=== PATIENT | male | born 1995 | race Caucasian/White ===

== ENCOUNTER 2021-02-12 14:31 | Emergency (ER) | payer SELFPAY ==
[2021-02-12 14:32] VITALS: RESP 18; TEMP 36.8; O2SAT 99; BMI 29.2
--- NOTE | 2021-02-12 14:48 | ECG_ITS ---
APPROVED REPORT Exam: Resting ECG HR:92 bpm ECG Measurements Heart Rate 92 AXES TN 144 P 72 QRSd 78 QRS 95 QT 326 T 56 QTc 403 Conclusion Normal sinus rhythm Rightward axis Borderline ECG Electronically signed by : Bill Lindsay MD 02/14/2021 11:39:39
--- NOTE | 2021-02-12 14:49 | HMH.EDGENADL ---
ED Disposition Clinical Impression: Pharyngitis Qualifiers: Pharyngitis/tonsillitis etiology: unspecified etiology Qualified Code(s): J02.9 - Acute pharyngitis, unspecified Disposition: Home, Self-Care Condition on Discharge: Good Additional Instructions: Cizr-ixh-[id number] medications as needed for aches and pains. PCP follow-up in 2 to 3 days. Referrals: Provider,Referral, MD [Primary Care Provider] - 3 days Time of Disposition: 16:28 - Critical Care Critical Care Time: No Attestation: On , the high probability of a clinically significant, sudden or life threatening deterioration of the following system(s) required my full and direct attention, intervention and personal management. The time I documented below is in addition to time spent performing reported procedures but includes the following listed in this critical care notation. Medical Decision Making - Medical Records Medical records reviewed: Yes: I reviewed the patient's medical records. - Bacilio Inquiry Pt receiving controlled substance: No Vital Signs: 02/12/21 14:32 Temperature 98.3 F Temperature Source Oral Respiratory Rate 18 02 Sat by Pulse Oximetry 99 Oxygen Delivery Method Room Air - Lab Data Lab results reviewed: Yes: I reviewed the patient's lab results. Lab Results 02/12/21 15:45: Group A Strep Rapid Negative Orders (Tests/Meds): ORDERS Category Date Time Status Strep Screen Confirmation Stat Micro 02/12/21 15:45 Received - ECG Data Tracing #1 I reviewed this ECG and interpreted as documented below: 92 bpm, normal sinus rhythm, no ST elevation or depression, normal intervals, no ectopy. ECG initial impression date: 02/12/21 ECG initial impression time: 14:48 Medical Decision Narrative: 25yo M initially long as shortness of breath and therefore chest x-ray in EKG were obtained. The studies are unremarkable. Upon evaluating the patient, actual complaint is left-sided otalgia and sore throat. Physical exam is remarkable only for mild exudate. Strep swab is obtained given history of fever. Strep swab is negative. Discussed likely viral etiology. Continue fkek-dhf-rmrxxey medication as needed for aches and pains. General Adult HPI - General Chief complaint: Shortness of Breath/Dyspnea Stated complaint: throat swollen Time Seen by Provider: 02/12/21 14:49 Mode of Arrival: Ambulatory Limitations: No Limitations Description of Symptoms (Recalled from ER Triage Doc. by RN): pt reports getting 2nd moderna shot on 02/06, has had a sore throat since. states progressively worsening with swelling, last night states it feels like my throat is closing & i am short of breath - History of Present Illness HPI narrative: 25yo M presents to the emergency department with left-sided sore throat. Reports symptoms began around Wednesday. States had a fever of 101.4 on Wednesday. Did not take any medication. Has been afebrile since. Also complains of left-sided otalgia. Denies any known sick contact. Does not smoke. No recent antibiotic use. Denies any difficulty breathing or airway compromise. - Related Data Allergies Allergy/AdvReac Type Severity Reaction Status Date / Time No Known Allergies Allergy Verified 02/12/21 14:52 [facility] History - Hepatitis A Screen Drug use history?: No High risk sexual behaviors?: No History of sexually transmitted infection?: No Currently employed?: No Childcare worker?: No Do you have indoor plumbing?: Yes Do you have electricity?: Yes Attestation statement:: This patient has been screened for Hepatitis A risk factors. I have reviewed the patient's past medical history: Yes ROS Obtained: Yes All systems reviewed & no additional complaints - ENT Ears, Nose, Mouth, and Throat: Reports as per HPI Physical Exam - General General appearance: alert, in no apparent distress - Head Head exam: atraumatic, normocephalic, normal inspection - Eye Eye exam: Present: normal
--- NOTE | 2021-02-12 15:12 | XR_ITS ---
PROCEDURE: XR CHEST PORTABLE CLINICAL HISTORY: sob Shortness of breath COMPARISON: No exams were available for comparison FINDINGS: The cardiomediastinal silhouette and pulmonary vascularity are within normal limits. The lungs are clear without infiltrates, suspicious nodules, or pleural effusions. No acute bony abnormalities. IMPRESSION: No acute findings. Dictated by: Shawn Laws MD 02/12/2021 15:21 Shawn Laws MD in [place] 02/12/2021 15:21
[2021-02-12 16:13] LABS: Strep Scrn Group A (Rapid) Negative (Negative)
[2021-02-12 16:35] VITALS: BP 123/82; PULSE 73; RESP 18; TEMP 37.9; O2SAT 97
== END 2021-02-12 16:36 | disposition home or self-care (01) ==
PROVIDERS: Emergency Provider Family Medicine
DX: J02.9 Acute pharyngitis, unspecified (principal)
CPT/HCPCS: 71045; 87430; 93005; 99282

== ENCOUNTER 2024-07-11 08:23 | Emergency (ER) | payer BC, SELFPAY ==
[2024-07-11 08:40] VITALS: BP 134/77; PULSE 111; RESP 20; TEMP 36.8; O2SAT 97; BMI 32.3
[2024-07-11] MEDS: ONDANSETRON 4MG ODT 4 MG SL (09:01)
--- NOTE | 2024-07-11 09:06 | EXP.UTC ---
Discharge Plan Disposition Patient Disposition: Home, Self-Care Condition: Good Prescriptions Prescriptions: New albuterol sulfate 90 mcg/actuation HFA aerosol inhaler 2 puff inhalation Q6H PRN (Reason: shortness of breath or wheezing) Qty: 8.5 0RF ondansetron 4 mg tablet,disintegrating 4 mg PO Q8H PRN (Reason: nausea and vomiting) Qty: 10 0RF Referrals Follow up/Referrals: Gerson Castano APRN [Primary Care Provider] - See instructions Activity Restrictions/Add. Instructions Additional Instructions/Restrictions: *Monitor Temp, Over the counter Motrin or Tylenol as directed/as needed Tylenol every 4 hours and Motrin every 6 hours (as long as your family doctor has told you that you can take it) for fever or pain. and straight to ER if unable to lower temp less than 101.0 after medication given *Warm salt water gargles may help to soothe the throat *Throat Lozenges? *Warm fluids like tea with honey may help to soothe the throat? *Sleep elevated *Humidifier/Vaporizer Your throat swab was sent for culture. Those results are typically sent to your primary care. Be sure to follow up in 2-3 days with your family doctor/primary care physician if no improvement so they can review those result and treat if necessary. If you don?t have a primary care doctor, I recommend you get one but in the mean time, you will have to return to a walk in clinic Follow up IMMEDIATELY for new or worsening symptoms or no Noticeable improvement over the next 48-72 hours. 911 for difficulty breathing or swallowing Clinical Impressions Clinical Impression: Viral syndrome Stand Alone Forms Stand Alone Forms: Work/School Release Instructions Patient Instructions: DI for Viral Syndrome Print Language Print Language: Slovak Discharge ED Provider: Kacy Monreal [facility] HPI General Stated complaint: congestion, body aches Mode of Arrival: Ambulatory Source of Information: Patient and Spouse Limitations: No Limitations Time Seen by Provider: 07/11/24 09:06 Description of Symptoms (Recalled from Triage Doc. by RN): PATIENT C/O CHILLS, SOA, FEVER, NAUSEA, VOMITING, AND BODY ACHES THAT STARTED YESTERDAY MORNING HEENT Symptoms (Recalled from RN notes): No Resp Symptoms (Recalled from RN notes): Yes Skin Symptoms (Recalled from RN notes): No MS Symptoms (Recalled from RN notes): No Functional Status (Recalled from RN notes): WNL History of Present Illness Provider Complaint: Patient states started feeling bad yesterday morning with body aches, chills, fever, nausea and has asthma and felt a little SOA on and off States today still having body aches, chills, fever, nausea and over all not feeling well worried may have the flu Related Data Previous Rx's ?Medication ?Instructions ?Recorded albuterol sulfate 90 mcg/actuation 2 puff inhalation Q6H PRN 07/11/24 aerosol inhaler shortness of breath or wheezing #8.5 grams ondansetron 4 mg disintegrating 4 mg PO Q8H PRN nausea and 07/11/24 tablet vomiting #10 tabs Allergies Allergy/AdvReac Type Severity Reaction Status Date / Time No Known Allergies Allergy Verified 02/12/21 14:52 Worker's Comp Is this a Worker's Comp case?: No PFSH [facility] Disclaimer: The information contained in this section may have been updated after the patient was seen, as this information can be updated by other users. Medical History (Updated 07/11/24 @ 09:32 by Kacy Monreal APRN) Asthma Diabetes mellitus type 1 Social History Smoking Status: Unknown if ever smoked alcohol intake: never current occupational status: employed Travel in the last 8 weeks: None ROS Obtained: Yes All systems reviewed & no additional complaints except as documented and Yes Systems reviewed as appropriate & no additional complaints except as documented Constitutional Constitutional: Reports system reviewed and no additional complaints, except as documented, Reports as per HPI, Reports body ache, Reports chills, Reports fever(s) and Reports headache(s) ENT Ears, Nose, Mouth, and Throat: Reports system reviewed and no additional complaints, except as documented, Reports as per HPI, Reports headache(s), Reports nasal congestion and Reports nasal discharge Cardiovascular Cardiovascular: Reports system reviewed and no additional complaints, except as documented and Reports as per HPI Respiratory Respiratory: Reports system reviewed and no additional complaints, except as documented and Reports as per HPI Gastrointestinal Gastrointestingal: Reports system reviewed and no additional complaints, except as documented, as per HPI, nausea and vomiting Neurologic Neurologic: Reports headache(s) Physical Exam General General appearance: alert and in no apparent distress ENT ENT exam: Present mucous membranes moist Expanded ENT Exam Nose exam: Absent sinus tenderness Throat exam: Present tonsillar erythema Chest Chest inspection: Present normal inspection and symmetric chest wall rise Respiratory Respiratory exam: Present normal lung sounds bilaterally; Absent respiratory distress or wheezes Cardiovascular Cardiovascular exam: Present regular rate, normal rhythm and tachycardia Abdominal Exam Abdominal exam: Present soft and normal bowel sounds; Absent distention or tenderness Neurological Exam Neurological exam: Present alert, oriented X3 and normal gait Medical Decision Making Medical Records Screening: Per USPSTF and CDC recommendations, given the prevalence of disease in our region, it is our hospital?s policy to screen for HIV and viral Hepatitis for all patients aged 18 and over and those with ongoing risk factors. Bacilio Inquiry Pt receiving controlled substance: No Bacilio was queried for this patient: No Vital Signs: 07/11/24 08:40 Temperature 98.3 F Temperature Source Oral Pulse Rate [Left Brachial] 111 H Respiratory Rate 20 Blood Pressure [Left Arm] 134/77 Blood Pressure Mean [Left Arm] 96 Blood Pressure Source [Left Arm] Automatic Cuff Blood Pressure Position [Left Arm] Sitting 02 Sat by Pulse Oximetry 97 Oxygen Delivery Method Room Air Lab Data Lab results reviewed: Yes I reviewed the patient's lab results. Orders (Tests/Meds): ED MEDICATIONS Discontinued Medications Generic Name Dose Route Start Last Admin Trade Name Johnna PRN Reason Stop Dose Admin Ondansetron HCl 4 mg 07/11/24 08:51 07/11/24 09:01 Ondansetron 4mg Odt SL 07/11/24 08:52 4 mg ONCE ONE Administration Medical Decision Narrative: Patient family initially upset wanting to know why he was seen in here last night and no one did a test on him or sent him in any medication for his pneumonia, I was on [facility] last [facility] and patient was not a patient in the [facility], Patient then states that he was seen in the ED last night but did not register and did not have a bracelet states that he sit in the lobby and a nurse came out talked with him and the nurse give him an injection First patient states it was an antibiotic then a states it was a steriod and sit them in a room for 1 hour and 45 min and they told him he had flu and bronchial pneumonia and discharged him home, viewed patient chart and there was no record of patient being seen in the ER at this facility and no medication was removed under patient name Again asked patient if he was sure he came to this ED and not just mistaken and went to another hospital he again said yes, States that he got an injection in his right hip, viewed hip no obvious injection noel noted discussed with patient that there is again no record of patient being seen at [facility] yesterday at the ED or [facility] and no medication showed to be removed under the name provided along with no documentation that patient was at this facilty which Patient would have had to be registered to be in the computer to provide the information that would have been needed to get the medication out of the [facility] that he states he was given, viewed past notes and showed patient has not been seen at this facility since 02/12/21m no record from 07/10/24 was found, assistant housekeeping manager and ED director aware, will do a Mini Panel, prescribe resque inhaler and Zofran
[2024-07-11 09:33] LABS: UTC Strep Screen (Rapid) Negative (Negative)
[2024-07-11 09:34] LABS: UTC Influenza A Antigen Negative (Negative); UTC Influenza B Antigen Negative (Negative)
[2024-07-11 09:35] VITALS: BP 134/77; PULSE 111; RESP 18; TEMP 36.8; O2SAT 97
[2024-07-11 09:51] LABS: Coronavirus 19, PCR Not Detected (NotDetected); Human Rhinovirus Not Detected (NotDetected); Influenza B, PCR Not Detected (NotDetected); Respiratory Syncytial Virus Not Detected (NotDetected)
[2024-07-11 13:02] LABS: Influenza A, PCR Detected (NotDetected)
== END 2024-07-11 09:42 | disposition home or self-care (01) ==
PROVIDERS: Emergency Provider Nurse Practitioner; PCP Nurse Practitioner Family
DX: B34.9 Viral infection, unspecified (principal); R50.9 Fever, unspecified; R51.9 Headache, unspecified; R09.81 Nasal congestion; R11.2 Nausea with vomiting, unspecified
CPT/HCPCS: 87631; 87804; 87880; 99212; G0381; Q0162